=== PATIENT | female | born 1960 | race Caucasian/White ===

== ENCOUNTER → 2020-10-29 | Outpatient (CLI) | payer BC, OTHER ==
[~2020-10-29] MED LIST: ACYCLOVIR 800800 M1 PO; ADVAIR 500-501 EACH; ALLEGRA ALLERG180 MG; ASPIRIN EC81 M1 PO; DIABETA 5MG TABL5 MG PO; DILTIAZEM 24HR240 MG; DIOVAN HCT 1601 EAC1; GLUCOPHAGE1000 MG; NICOTINE TRANSD21 M1 TRANSDERM; PREDNISONE 10 M10 M1; PROAIR HFA8.5 GM; PROAIR HFA8.5 GM IH; PROVERA10 MG
== END ==
LOC: SJCVCIMAG 09:12
PROVIDERS: ATTEND Internal Medicine
DX: R00.0 Tachycardia, unspecified (principal); I49.3 Ventricular premature depolarization; R00.2 Palpitations